=== PATIENT | female | born 1990 ===

== ENCOUNTER → 2021-05-11 12:03 | Outpatient (CLI) | payer OTHER, SELFPAY ==
--- NOTE | 2021-05-11 12:07 | DI.US.S_ITS ---
PROCEDURE: US OB <= 14 WEEKS FETUS INDICATIONS: VIABILITY AND DATES OUTSIDE/PRIOR DATING DATA: Last menstrual period (LMP): 02/27/2021 LMP-based estimated date of delivery (GISEL): 12/04/2021. First dating scan (date and location): 05/11/2021. Estimated date of delivery (GISEL) from first dating scan: 11/29/2021. TECHNIQUE: Real-time scanning was performed of the fetus and maternal pelvic organs, with image documentation. Endovaginal scanning was also performed to better visualize the fetus and maternal ovaries. COMPARISON: None. FINDINGS: Embryo: Single intrauterine gestation is seen with fetus and yolk sac seen. [place]-rump length measures 4.3 cm. Estimated gestational age is 11 weeks, 1 day. Heart rate: 160 beats per minute. Small perigestational hemorrhage measures 2.9 x 0.9 x 1.3 cm in size is seen. Maternal organs: Ovaries are visualized and are within normal limits. Possible small corpus luteum in left ovary is noted. IMPRESSION: 1. Single live intrauterine gestation with fetus and yolk sac seen. heart rate is 160 beats per minute. Estimated gestational age is 11 weeks, 1 day. 2. Small perigestational hemorrhage as above. 3. Possible small corpus luteum in left ovary. We strive to produce accurate, complete, and clear reports of imaging services. To assist us in improving patient care, this report was composed using standard report templates and voice recognition software. Therefore, it may contain abnormal punctuation, insertions and/or omissions. Occasional wrong-word or sound-alike substitutions may occur. Though we review the report and make efforts to correct it, we do recommend that the report be read carefully in proper context to recognize any text inaccuracies. Dictated by: Junior Ritter M.D. on 05/11/2021 at 14:33 Approved by: Junior Ritter M.D. on 05/11/2021 at 14:49
== END ==
PROVIDERS: Referring Provider Family Medicine; Visit Provider Family Medicine
DX: Z36.87 Encounter for antenatal screening for uncertain dates (principal); Z3A.11 11 weeks gestation of pregnancy
CPT/HCPCS: 76801; 76817

== ENCOUNTER → 2021-07-26 10:48 | Outpatient (CLI) | payer OTHER, SELFPAY ==
--- NOTE | 2021-07-26 10:49 | DI.US.S_ITS ---
PROCEDURE: US OB >= 14 WEEKS FETUS INDICATIONS: anatomy screening OUTSIDE/PRIOR DATING DATA: Last menstrual period (LMP): 02/27/2021. LMP-based estimated date of delivery (GISEL): 12/04/2021. First dating scan (date and location): 05/11/2021. Estimated date of delivery (GISEL) from first dating scan: 11/29/2021. The 1st ultrasound dating was used in the following exam. TECHNIQUE: Real-time scanning was performed of the fetus, with image documentation and biometric measurements. COMPARISON: [facility], , OB <= 14 WEEKS FETUS, 05/11/2021, 12:22. FINDINGS: General: A single living intrauterine gestation is present. Presentation: Breech. Placenta: Placental position is anterior , without previa. Amniotic fluid index: 14.2 cm, normal range is 5-24 cm. Single deepest vertical pocket is 3.9 cm. heart rate: 144 beats per minute. Maternal cervical canal: 4.6 cm long. Normal lower limit is 2.5 cm. biometrics: Biparietal diameter: 22 weeks 1 day Head circumference: 21 weeks 5 days Abdominal circumference: 22 weeks 1 day Femur length: 23 weeks 0 day Clinically estimated gestational age: 22 weeks 0 day Composite gestational age from present scan: 22 weeks 2 days Estimated weight and percentile: 504 g; 67%. Anatomic survey: Neuro: Ventricles are non-dilated at less than 10 mm. Cisterna magna is normal at 3-11 mm. Cerebellum is normal in size and morphology. Nuchal skin fold: Normal at less than 6 mm between 14-21 weeks gestational age. Face: Nose and lips, facial profile are normal. Spine: No evidence for spina bifida. Heart: 4-chambered heart is present, with normal ventricular outflow tracts. Diaphragm: Diaphragm is intact. Stomach: Left-sided stomach is present. Kidneys: No hydronephrosis. Normal is less than 5 mm in 2nd trimester, less than 7 mm in 3rd trimester. Cord: 3-vessel cord. The placental cord insertion is not well seen. Bladder: Normal in size. Extremities: All 4 extremities identified. IMPRESSION: 1. A single living intrauterine gestation with appropriate interval growth. 2. Placental cord insertion is not well seen. Otherwise normal anatomic survey. We strive to produce accurate, complete, and clear reports of imaging services. To assist us in improving patient care, this report was composed using standard report templates and voice recognition software. Therefore, it may contain abnormal punctuation, insertions and/or omissions. Occasional wrong-word or sound-alike substitutions may occur. Though we review the report and make efforts to correct it, we do recommend that the report be read carefully in proper context to recognize any text inaccuracies. Dictated by: Emani Mcnulty M.D. on 07/26/2021 at 14:02 Approved by: Emani Mcnulty M.D. on 07/26/2021 at 14:21
== END ==
PROVIDERS: Referring Provider Family Medicine; Visit Provider Family Medicine
DX: Z34.92 Encounter for supervision of normal pregnancy, unspecified, second trimester (principal); Z3A.22 22 weeks gestation of pregnancy
CPT/HCPCS: 76811

== ENCOUNTER → 2021-09-23 10:32 | Outpatient (CLI) | payer OTHER, SELFPAY ==
[2021-09-23 12:08] LABS: Add Manual Diff / Slide Review NO; Basophils Absolute Auto 0 /uL (0-100); Basophils Percent Auto 0.3 % (0-2); Eosinophils Absolute Auto 100 /uL (0-450); Eosinophils Percent Auto 1.2 % (2-4); Hematocrit 35.5 % (36-46); Hemoglobin 12.1 g/dL (12.0-16.0); Lymphocytes Absolute Auto 2200 /uL (1100-4500); Mean Corpuscular Hemoglobin 29.5 PG (26-34); Mean Corpuscular Volume 86.7 fL (80-100); Monocytes Absolute Auto 800 /uL (0-900); Monocytes Percent Auto 8.1 % (3-14); Neutrophils Absolute Auto 7000 /uL (1500-7000); Neutrophils Percent Auto 68.4 % (50-75); Platelet Count 293 X10^3/uL (150-400); Red Blood Cell Count 4.09 X10^6/uL (4.0-5.2); White Blood Cell Count 10.2 X10^3/uL (4.5-11.0)
[2021-09-23 13:32] LABS: GTT (PREG) 1 Hour PP 50gm Dose 159 mg/dL (76-139)
[2021-09-24 08:04] LABS: RPR Screen Non Reactive (Non Reactive)
[2021-09-26 16:33] LABS: Hepatitis B Surface Antigen NEGATIVE s/c (NEGATIVE); Rubella Antibody IgG 30.8 IU/mL (>15)
[2021-09-26 16:51] LABS: HIV 1 & 2 Ab/Ag 4th Gen Combo NEGATIVE (NEGATIVE); Hep C Virus Ab w/Reflex Quant NEGATIVE s/c (NEGATIVE)
== END ==
PROVIDERS: PCP Family Medicine; Referring Provider Family Medicine; Visit Provider Family Medicine
DX: Z34.00 Encounter for supervision of normal first pregnancy, unspecified trimester (principal); Z3A.30 30 weeks gestation of pregnancy
CPT/HCPCS: 36415; 80055; 82950; 86803; 87086; 87389

== ENCOUNTER → 2021-11-08 11:34 | Outpatient (CLI) | payer OTHER, SELFPAY ==
[2021-11-09 20:48] LABS: Strep Grp B PCR NEG for Grp B Strep
== END ==
PROVIDERS: PCP Family Medicine; Visit Provider Family Medicine
DX: Z34.93 Encounter for supervision of normal pregnancy, unspecified, third trimester (principal); Z3A.36 36 weeks gestation of pregnancy
CPT/HCPCS: 87653

== ENCOUNTER 2021-11-21 10:44 | Outpatient (CLI) | payer OTHER, SELFPAY ==
--- NOTE | 2021-11-21 11:15 | P.TNLD_ITS ---
Visit Information Visit Information Date of evaluation: 11/21/21 Primary OB Provider: Anne-Marie Gorman Reason for Evaluation: Yes non-stress test non-stress test reason: decreased movement Vital Signs Vital Signs: Temperature 36.3? 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: No seatbelt use: always water heater temp set < 120 deg: Yes (will check) working smoke detector in home: Yes fire extinguisher in home: Yes carbon monox detector in home: Yes firearms in home: No do you feel safe at home: Yes Smoking Status: Never smoker second hand exposure: No alcohol intake: former substance use type: former substance user and marijuana during the past year weight has: remained stable well-balanced diet: daily or most days daily servings fruits/ve-4 caffeine: No (200mg per day) Type(s) of exercise: regular exercise Evaluation Evaluation Baseline heart rate: 130 Variability: Moderate (11-25) monitor accelerations: Present Monitor Decelerations: Absent Category of Tracing: Reactive Diagnosis, Plan/Disposition Final Diagnosis (1) Decreased movement: Status: Acute (2) 38 weeks gestation of : Status: Acute Plan/Disposition Plan: 30-year-old at 38 weeks gestation who presented to her routine OB visit with reports of a change in movement the last few days. NST reactive and patient is feeling her baby move today. Follow-up in 1 week or sooner if needed. OB Disposition: home
== END 2021-11-21 11:20 | disposition home or self-care (01) ==
LOC: OB 11-24 11:25
PROVIDERS: PCP Family Medicine; Referring Provider Family Medicine; Visit Provider Family Medicine
DX: O36.8130 Decreased fetal movements, third trimester, not applicable or unspecified (principal); Z3A.38 38 weeks gestation of pregnancy
CPT/HCPCS: 59025; G0378; G0379

== ENCOUNTER 2021-11-24 08:20 | Inpatient (IN) | payer OTHER, SELFPAY ==
--- NOTE | 2021-11-24 08:40 | PM.OBHP.IH.1 ---
OB HPI Date/Time Date of admission: 11/24/21 Date Patient Seen: 11/24/21 Time Patient Seen: 08:15 History of Present Condition Chief complaint: Water broke GISEL Calculator Estimated Delivery Date Method Current WG Current Estimate 12/02/21 LMP (Certain) 38w 6d Other Estimates 11/29/21 Ultrasound #1 39w 2d Estimated Gestational Age (weeks): 38w6d : 1 Para: 0 Narrative: 31-year-old at 38 weeks and 6 days gestation who presents after rupture of membranes. She rolled over in bed at approximately 11:30 a.m. last night and felt a gush of fluid. She got up and went to the bathroom needing to change her underwear because it was wet. She called the on-call doctor and was advised to go to the ER in Sunday to be checked. In the ER she was found to be nitrazine positive confirming rupture of membranes. She came over on the first very this morning. She has not been feeling contractions. Baby has been active. She did have some mucousy discharge during the night but no bleeding. Starla has been uncomplicated. She lives on [facility]. care: good care, initiated at week # (13), number of visits (10) and pounds weight gain (43) Dating criteria OB: LMP confirmed by 1st trimester US Ultrasounds: normal 1st trimester US and normal mid trimester US Obstetrical complications: none Medical complications OB: none Preadmission Labs Last OB Lab Results: Hematocrit 35.5 % (36-46) L 09/23/21 10:48 Hemoglobin 12.1 g/dL (12.0-16.0) 09/23/21 10:48 Hepatitis B Surface Antigen Negative s/c (NEGATIVE) 09/23/21 10:48 Hepatitis C Antibody Negative s/c (NEGATIVE) 09/23/21 10:48 Rubella Antibody 30.8 IU/mL (>15) 09/23/21 10:48 Glucose 1 Hour 159 mg/dL (76-139) H 09/23/21 12:02 Group B Streptococcus (PCR) Neg for grp b strep 11/08/21 11:34 Glucose Tolerance Testing: Fasting (82), 1 hr (110), 2 hr (111) and 3 hr (125) -: Chlamydia screen: negative, Gonorrhea screen: negative and Urine: negative -: PAP smear: Abnormal (ASCUS, HPV+) Genetic Screens: Quad screen: Normal External Labs -: Urine: negative Evaluation Evaluation Baseline heart rate: 135 Variability: Moderate (11-25) monitor accelerations: Present Monitor Decelerations: Absent Category of Tracing: Reactive Status: Category l Dilation (cm): 1.5 Effacement (%): 75 station: -3 Non-invasive Membranes Rupture Test: positive (Positive nitrazine at outside hospital) PFSH Medical History Anxiety Surgical History H/O wisdom tooth extraction Social History marital status: unmarried,living together number of children: 1 household members: significant other lives independently: Yes housing: house pets and animals: No education level: high school occupational status: employed 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 seatbelt use: always water heater temp set < 120 deg: Yes (will check) working smoke detector in home: Yes fire extinguisher in home: Yes carbon monox detector in home: Yes firearms in home: No do you feel safe at home: Yes Smoking Status: Never smoker second hand exposure: No alcohol intake: former substance use type: former substance user and marijuana during the past year weight has: remained stable well-balanced diet: daily or most days daily servings fruits/ve-4 caffeine: No (200mg per day) Type(s) of exercise: regular exercise Meds Home Medications and Allergies Home Medications Medication Instructions Recorded Confirmed Type doxylamine succinate 25 mg tablet 25 mg PO BEDTIME PRN 04/11/21 11/14/21 History (Unisom (doxylamine)) prenat.vits,beck,gmc-[id number] 1 tab PO DAILY 04/11/21 11/14/21 History Allergies Allergy/AdvReac Type Severity Reaction Status Date / Time Sulfa (Sulfonamide Allergy Mild Rash Verified 11/14/21 09:57 Antibiotics) Review of Systems Review of Systems ROS: Yes All systems reviewed with the patient and are negative except as otherwise documented OB Exam Narrative Exam Narrative: T 98.0? blood pressure 113/57 rate 93 HENMT Head: normal to inspection Resp Effort & Inspection: normal respiratory effort Auscultation: clear to auscultation bilaterally Cardio Rate: regular rate Rhythm: regular rhythm Extremities Lower extremity: Yes normal to inspection; No edema Presentation: vertex Estimated Weight (lbs): 8 Amniotic Fluid: Nitrazine positive Assessment and Plan Assessment and Plan Assessment and Plan narrative: 31-year-old at 38 weeks and 6 days gestation spontaneous rupture membranes without active labor. Rupture of membranes at approximately 11:30 p.m. last night with clear fluid. She has not had ongoing leaking since the middle of the night though was nitrazine positive confirming rupture membranes. Given lack of spontaneous labor in the last 9 hours, recommended admission and Pitocin augmentation due to rupture of membranes. She is GBS negative. On exam this morning there was concern for a palpable mass in front of the head, unsure whether a finger or cord. Dr. Cobian kindly evaluated the patient with bedside ultrasound as well as digital exam and ruled out concern for umbilical cord. The hand may have been down in front of the head but was not present on Dr. Cobian's exam. Plan Admit labs, COVID swab Begin Pitocin per protocol Epidural upon request Anticipate
[2021-11-24 09:30] VITALS: BP 113/57
[2021-11-24 09:39] LABS: Add Manual Diff / Slide Review NO; Basophils Absolute Auto 100 /uL (0-100); Basophils Percent Auto 0.5 % (0-2); Eosinophils Absolute Auto 0 /uL (0-450); Eosinophils Percent Auto 0.5 % (2-4); Hematocrit 32.8 % (36-46); Hemoglobin 10.9 g/dL (12.0-16.0); Lymphocytes Absolute Auto 2100 /uL (1100-4500); Lymphocytes Percent Auto 20.6 % (25-40); Mean Corpuscular HGB Conc 33.1 % (30-36); Mean Corpuscular Hemoglobin 26.2 PG (26-34); Mean Corpuscular Volume 79.2 fL (80-100); Monocytes Absolute Auto 500 /uL (0-900); Monocytes Percent Auto 5.1 % (3-14); Neutrophils Absolute Auto 7500 /uL (1500-7000); Neutrophils Percent Auto 73.3 % (50-75); Platelet Count 277 X10^3/uL (150-400); Red Blood Cell Count 4.14 X10^6/uL (4.0-5.2); Red Cell Distribution Width 15.5 % (11.6-14.8); White Blood Cell Count 10.2 X10^3/uL (4.5-11.0)
[2021-11-24 09:55] LABS: COVID19 -Nasal RAPID Negative (Negative)
[2021-11-24] MEDS: OXYTOCIN PREMIX 30 UNIT/500 ML PLAST..BAG IV (10:10)
[2021-11-24] MEDS: LACTATED RINGERS 1,000 ML 100 ML IV ×3 (10:10→19:26)
[2021-11-24] MEDS: CALCIUM CARBONATE 500 MG TAB 1000 MG PO (15:22)
[2021-11-24] MEDS: FENT 2MCG/ML BUPIV 0.125% EPI 200 MCG/100 ML PLAST..BAG 8 MCG EPIDURAL (17:04)
--- NOTE | 2021-11-24 17:12 | PM.OBPNLAB ---
Date/Time Date Patient Seen: 11/24/21 Time Patient Seen: 16:50 Pain Control Comments: Desires epidural, contractions are much more painful. Denies leaking. Pelvic Exam Dilation (cm): 1.5 Effacement (%): 85 station: -3 Contractions Monitor mode: External Pitocin rate (mU/min): 4 Contraction frequency (min): 2 Contraction pattern: Regular Status status: Category l Heart Rate Baseline: 140 Monitor Accelerations: Present Monitor Decelerations: Absent Monitor Variability: Moderate Assessment and Plan Comments: 31-year-old at 38 weeks and 6 days with probable high membrane rupture last night at 11:30 p.m. here for labor augmentation given rupture membranes. She has not had ongoing leaking today. She has been on minimal Pitocin with regular contractions and is now requesting an epidural. Cervical exam modestly changed from this morning however there is no longer anything palpable in front of the head. Head remains high in the pelvis. Anesthesia is here to provide an epidural. When she is comfortable, will continue Pitocin and utilize the peanut ball. There is a forebag in front of the head. Will wait for spontaneous rupture membranes or consider rupture of membranes once the head is better applied to the cervix and lower in the pelvis.
--- NOTE | 2021-11-24 20:44 | PM.OBPNLAB ---
Date/Time Date Patient Seen: 11/24/21 Time Patient Seen: 20:30 Pain Control Pain control: epidural Comments: Comfortable with epidural, no complaints. Pelvic Exam Dilation (cm): 3 Effacement (%): 90 station: -3 Amniotic membrane status: Ruptured Contractions Monitor mode: External Pitocin rate (mU/min): 4 Contraction frequency (min): 4 Contraction pattern: Regular Status status: Category l Heart Rate Baseline: 140 Monitor Accelerations: Present Monitor Decelerations: Absent Monitor Variability: Moderate Assessment and Plan Plan: continuous present management Comments: 31-year-old at 38 weeks and 6 days with probable high membrane rupture last night at 11:30 p.m., now comfortable with an epidural. Progress has been slow on pitocin though pitocin was turned off after a prolonged deceleration associated with tachysystole just after before 1800 then slowly restarted. SVE now 3/90/-3. Suspect OP given high station behind pubic bone. Will continue to titrate pitocin as tolerated, peanut ball and frequent position change to help with descent.
[2021-11-25] MEDS: FENT 2MCG/ML BUPIV 0.125% EPI 200 MCG/100 ML PLAST..BAG 8 MCG EPIDURAL ×2 (01:18→09:56)
[2021-11-25] MEDS: CALCIUM CARBONATE 500 MG TAB 1000 MG PO (03:58)
--- NOTE | 2021-11-25 06:10 | PM.OBPNLAB ---
Date/Time Date Patient Seen: 11/25/21 Time Patient Seen: 06:05 Pain Control Pain control: epidural Comments: Intermittently nauseated, one emesis which was brownish, worried about blood though had had an orange popsicle. She had some leaking with the last cervical exam at 3 AM but no ongoing leaking. Pelvic Exam Dilation (cm): 6 Effacement (%): 100 station: -2 Amniotic membrane status: Ruptured (Rupture of membranes during cervical exam of a copious amount of clear fluid) Contractions Monitor mode: External Pitocin rate (mU/min): 10 Contraction frequency (min): 2 Contraction pattern: Regular Status status: Category l Heart Rate Baseline: 150 Monitor Accelerations: Present Monitor Decelerations: Absent Monitor Variability: Moderate Assessment and Plan Assessment: active labor Comments: 31-year-old at 39 weeks gestation admitted yesterday for rupture of membranes without active labor. She has been on Pitocin and made slow progress overnight. On last exam there was a bag of water which ruptured during the exam with a copious amount of clear fluid. She is comfortable with the epidural. Continue Pitocin and expectant management.
--- NOTE | 2021-11-25 13:23 | P.PNOB_ITS ---
Date/Time Date Patient Seen: 11/25/21 Pain Control Pain control: epidural Pelvic Exam Dilation (cm): 8 Effacement (%): 100 station: -2 Amniotic membrane status: Ruptured (Rupture of membranes during cervical exam of a copious amount of clear fluid) Contractions Monitor mode: External Pitocin rate (mU/min): 7 Contraction frequency (min): 3 Contraction pattern: Regular Status status: Category l Heart Rate Baseline: 140 Monitor Accelerations: Present Monitor Decelerations: Absent Monitor Variability: Moderate Assessment and Plan Assessment: active labor Comments: 31 year old at 39 weeks gestation. Exam at 9 AM per RN was 8/100/-2. Cervix remains unchanged despite pitocin. IUPC placed to measure adequacy of contractions. Discussed with the patient and her family the possible need for c- section if no cervical change despite adequate contractions over the next 2 hours. Last temperature was 99.8. Amniotic fluid continues to be clear without odor. No tachycardia to suggest chorioamnionititis. Will continue to monitor closely and titrate pitocin.
--- NOTE | 2021-11-25 15:19 | PM.OBPNLAB ---
Date/Time Date Patient Seen: 11/25/21 Time Patient Seen: 15:00 Pain Control Pain control: epidural Comments: She continues to be nauseated with some vomiting though declines Zofran. Pelvic Exam Dilation (cm): 8 Effacement (%): 100 station: -2 Amniotic membrane status: Ruptured (Rupture of membranes during cervical exam of a copious amount of clear fluid) Contractions Monitor mode: Internal Pitocin rate (mU/min): 10 Contraction frequency (min): 3 Contraction pattern: Regular Status status: Category ll Heart Rate Baseline: 150 Monitor Accelerations: Present Monitor Decelerations: Absent Monitor Variability: Minimal Assessment and Plan Plan: Comments: 31 year old at 39 weeks gestation with first stage arrest of labor. Cervix remains unchanged after 6 hours despite pitocin. Her temperature is now rising, as high as 100.7 though now signs of chorioamnionitis (no tachycardia or malodorous amniotic fluid). Discussed primary for arrest of labor with the patient, her partner and her mother. Risks of surgery reviewed including risk of bleeding, infection and injury to surrounding organs. She is accepting of a blood transfusion if indicated. Consent signed. Will give Ancef 2 g prior to surgery.
--- NOTE | 2021-11-25 15:19 | PM.PREOP ---
Pre-operative Note COVID-19 COVID-19 status: Negative Result date/Date tested (Pos, Neg/Pending): 11/24/21 Criteria for continued procedure: Expected advancement of disease process Interval Note History & Physical reviewed/Exam performed by Physician: Yes Changes to H&P: No
--- NOTE | 2021-11-25 16:59 | SUR.OPER ---
Supine on Padded OR bed, head on pillow, safety belt at thigh, arms secured on padded arm boards at <90 degrees abduction. Bump under right buttock. Legs uncrossed with pillow under knees, gel pad to heels, tape over blanket to lower legs.
[2021-11-25] MEDS: CEFAZOLIN 2 GM/100 ML PREMIX 100 ML IV (17:05)
--- NOTE | 2021-11-25 17:30 | SUR.OPER ---
heart tones at 150 prior to incision, viable baby girl born at 1711, placenta delivered at 1715, cord blood and placenta given to OB RN and taken to OB department, 8/9
[2021-11-25] MEDS: ACETAMINOPHEN IV 1,000 MG/100 ML VIAL 400 MG IV (17:47)
[2021-11-25 18:02] VITALS: BP 131/81; PULSE 96; RESP 26; TEMP 37.2; O2SAT 97
[2021-11-25 18:08] VITALS: BP 135/79; PULSE 104; RESP 20; O2SAT 97
[2021-11-25 18:13] VITALS: BP 111/67; PULSE 97; RESP 30; O2SAT 98
[2021-11-25] MEDS: ONDANSETRON 4 MG/2 ML INJ IV (18:16)
[2021-11-25 18:18] VITALS: BP 115/59; PULSE 97; RESP 26; O2SAT 98
--- NOTE | 2021-11-25 18:28 | P.OP_ITS ---
Operative Date/Time/Diagnoses Date of procedure: 11/25/21 Time of procedure: 17:00 Pre-op diagnosis: Arrest of first stage of labor, 39 weeks of Post-op diagnosis: same Procedure & Clinicians Procedure: Primary low transverse section Same procedure as scheduled: Yes Indications: Arrest of first stage of labor Surgeon: Anne-Marie Gorman Transformer Mechanic: Karen Lopez Reason for Transformer Mechanic: Dr. Lopez was essential to the case for retraction, delivery of infant, control of bleeding and suturing. Anesthesia Type: Epidural Operative Notes Findings: Vigorous female infant in the direct OP position, normal uterus, tubes and ovaries Closure Type: primary Specimen(s): cord blood and other (placenta cultures of and maternal sides) Intraoperative meds administered: Acetaminophen, Duramorph and Ketorolac Applied: Catheter Estimated Blood Loss (mL): 300 Procedure in detail: The patient was taken to the operating room where she was transferred to the operating table. She was then placed in the dorsal supine position with a leftward tilt. SCDs applied. She was prepped and draped in the usual sterile fashion. A timeout was performed. After epidural analgesia was found to be adequate, a Pfannenstiel skin incision was made 2 fingerbreadths above the pubic symphysis and carried through to the underlying layer fascia. The fascia was nicked in the midline and the incision extended bilaterally with Gonsalez scissors, Dr. Gorman doing the left side and Dr. Lopez doing the right side. The superior aspect of the fascial incision was grasped with a Geoff clamps, elevated, and the underlying rectus muscles dissected off sharply and bluntly. Attention was then turned to the inferior aspect of this incision which in a similar fashion was grasped with a Geoff clamps, elevated, and the underlying rectus muscles dissected off sharply and bluntly. The rectus muscles were in the midline. The peritoneum was entered and dissected bluntly laterally by Dr. Gorman and Dr. Lopez. After entering the peritoneum there was good visualization of the bladder. The bladder blade was inserted. The vesicouterine peritoneum was identified, grasped with the pickup, and entered sharply with the Metzenbaum scissors. This incision was extended bilaterally, and the bladder flap was created digitally. The bladder blade was reinserted. The lower uterine segment was incised in a transverse fashion with the scalpel. Upon entering the amniotic sac there was a small amount clear amniotic fluid. The 's head was delivered by Dr. Lopez. The remainder of the body delivered without difficulty. The cord was double clamped and cut. The was handed off to waiting RN and RT. The placenta was delivered with gentle traction. The uterus was cleared of all clots and debris. The uterine incision was repaired with #1 chromic in a running interlocking fashion and a second layer the same suture was used for an imbricating layer. Hemostasis was achieved. The tubes and ovaries were examined and were found to be normal. The gutters were cleared of all clots and debris. The peritoneum was closed using 2-0 Vicryl in a running fashion. The fascia was reapproximated using 0 Vicryl in a running fashion. Subcutaneous layer was copiously irrigated with warm normal saline. 3 simple interrupted sutures of 3-0 Vicryl were placed to reappr oximate the subcutaneous layer. The skin was closed with 4-0 Monocryl in a subcuticular fashion. Steri-Strips were placed. An Aquacel dressing was placed. The uterus was expressed of a small amount of old blood. Sponge, lap, and instrument counts were correct. The patient tolerated the procedure well, and was taken to PACU in stable condition. [place] Baby 1: Infant Gender: Female Presentation: vertex Position: Occiput Posterior Placental Delivery Description: Spontaneous Cord Vessel Description: 3 Vessels score (1 min): 8 score (5 min): 9 Post-operative Condition: stable Disposition: PACU Aftercare: routine postop
[2021-11-25] MEDS: KETOROLAC 30 MG/ML VIAL IV (23:54)
[2021-11-26] MEDS: KETOROLAC 30 MG/ML VIAL IV (06:28)
[2021-11-26] MEDS: ACETAMINOPHEN 325 MG TABLET 650 MG PO ×3 (09:23→21:06)
[2021-11-26] MEDS: DOCUSATE 100 MG CAPSULE 200 MG PO (09:24)
[2021-11-26] MEDS: FERROUS SULFATE 325 MG TABLET PO (09:24)
[2021-11-26] MEDS: PRENATAL VIT,CALC/IRON/FOLIC 1 TABLET 1 TAB PO (09:24)
--- NOTE | 2021-11-26 10:52 | PM.OBPN.1 ---
Subjective - OB Subjective Patient comments: no complaints, pain well controlled and tolerating diet baby status: doing well and nursing well Narrative: Patient reports that she is doing well this morning. Her catheter was removed and she has voided. No difficulty with ambulation. She is tolerating diet and denies nausea. Vaginal bleeding is as expected. Pain controlled with Toradol and Tylenol only. She is not yet passing flatus. Date Patient Seen: 11/26/21 Time Patient Seen: 09:45 Exam Vital Signs (past 8 hours): Oxygen Delivery Method Room Air Temperature 98.4? blood pressure 111/61 heart rate 72 respirations 16 Narrative Exam Narrative: General: Awake and alert, no acute distress. HEENT: NCAT, EOMI, moist oral mucosa CV: Regular rate and rhythm, no murmurs, rubs or gallops Lungs: CTAB, no wheezes, rales, or rhonchi Abdomen: Aquacel dressing intact without drainage. Soft, nontender; bowel tones active; uterus firm 1 cm below umbilicus Extremities: Warm, trace edema bilaterally, 2+ pedal pulses bilaterally Objective Labs Result Diagrams: 11/24/21 08:40 Assessment & Plan Plan day: 1 plan OB: routine postop care Comments: 31-year-old after primary section for arrest of labor. She is recovering well. is going very well. Encouraged ambulation today. Time Spent With Patient Time: Total time spent is greater than 50% in coordination of care (as documented) at patient's floor/unit and/or counseling patient: Time with patient: 15-24 minutes
[2021-11-26 12:26] LABS: Add Manual Diff / Slide Review NO; Basophils Absolute Auto 0 /uL (0-100); Basophils Percent Auto 0.3 % (0-2); Eosinophils Absolute Auto 0 /uL (0-450); Eosinophils Percent Auto 0.2 % (2-4); Hematocrit 31.7 % (36-46); Hemoglobin 10.2 g/dL (12.0-16.0); Lymphocytes Absolute Auto 1800 /uL (1100-4500); Lymphocytes Percent Auto 11.5 % (25-40); Mean Corpuscular HGB Conc 32.2 % (30-36); Mean Corpuscular Hemoglobin 25.7 PG (26-34); Mean Corpuscular Volume 79.8 fL (80-100); Monocytes Absolute Auto 1100 /uL (0-900); Monocytes Percent Auto 6.9 % (3-14); Neutrophils Absolute Auto 13000 /uL (1500-7000); Neutrophils Percent Auto 81.1 % (50-75); Platelet Count 278 X10^3/uL (150-400); Red Blood Cell Count 3.97 X10^6/uL (4.0-5.2); Red Cell Distribution Width 15.5 % (11.6-14.8); White Blood Cell Count 16.1 X10^3/uL (4.5-11.0)
[2021-11-26] MEDS: IBUPROFEN 600 MG TABLET PO ×2 (13:57→20:25)
[2021-11-27] MEDS: IBUPROFEN 600 MG TABLET PO ×2 (03:00→08:52)
[2021-11-27] MEDS: ACETAMINOPHEN 325 MG TABLET 650 MG PO ×2 (03:00→08:52)
[2021-11-27] MEDS: OXYCODONE IR 5 MG TABLET PO (03:01)
[2021-11-27] MEDS: FERROUS SULFATE 325 MG TABLET PO (08:52)
[2021-11-27] MEDS: PRENATAL VIT,CALC/IRON/FOLIC 1 TABLET 1 TAB PO (08:52)
[2021-11-27] MEDS: DOCUSATE 100 MG CAPSULE 200 MG PO (08:52)
--- NOTE | 2021-11-27 10:12 | P.DS_ITS ---
Discharge Providers Provider Date of admission: 11/24/21 08:20 Discharge Date: 11/27/21 Primary care physician: Anne-Marie Gorman DO Consults: 11/25/21 19:34 Consult to Community Outreach Worker Routine Comment: Discharge provider: Anne-Marie Gorman DO Summary Hospital Course Date Patient Seen: 11/27/21 Time Patient Seen: 09:15 Diagnoses: 39 weeks of Arrest of first stage of labor Primary low transverse section Hospital Course: 31-year-old G1 now P1 after primary section at 39 weeks gestation for arrest of labor. Patient was admitted with rupture of membranes confirmed at an outside hospital however no active labor. She was started on Pitocin and received an epidural. Progress was slow on Pitocin. There was eventual second rupture of membranes with clear fluid. Patient dilated to 8 cm however did not continue to dilate over the following 6 hours. She then went on to develop a fever as high as 100.7 without signs of chorioamnionitis (no malodorous amniotic fluid or tachycardia). She was taken for primary low- transverse section due to arrest of first stage of labor. was uncomplicated and she was delivered of a vigorous female infant with Apgars of 8 and 9. course has been uncomplicated. She is ambulating, voiding and passing flatus. Pain well controlled with ibuprofen, Tylenol and minimal oxycodone. Vaginal bleeding is light to moderate as expected. is going well without concerns in the . Advised patient to call for fevers, severe pain or bleeding through more than a pad an hour. She will follow-up in clinic on 12/01/21 for Aquacel dressing removal. Peripartum Data Infant Delivery Method: Section complications: none 1: Gender: Female Disposition of : home Discharge Diagnosis (1) Arrested active labor, delivered, current hospitalization: Status: Acute (2) 39 weeks gestation of : Status: Acute Status at Discharge Cognitive/behavioral status at discharge: at baseline, oriented Functional status at discharge: independent ambulation Overall status at discharge: patient is progressing back to baseline Time Spent with Patient Time attestation: Total time spent providing and/or coordinating discharge services: Time spent: Less than 30 minutes Objective Labs Result Diagrams: 11/26/21 12:00 Labs: Laboratory Results - last 24 hr 11/26/21 12:00 WBC 16.1 H RBC 3.97 L Hgb 10.2 L Hct 31.7 L MCV 79.8 L MCH 25.7 L MCHC 32.2 RDW 15.5 H Plt Count 278 Neut % (Auto) 81.1 H Lymph % (Auto) 11.5 L [place] % (Auto) 6.9 Eos % (Auto) 0.2 L Baso % (Auto) 0.3 Neut # (Auto) 40453 H Lymph # (Auto) 1800 [place] # (Auto) 1100 H Eos # (Auto) 0 Baso # (Auto) 0 Exam Vital Signs (past 8 hours): Oxygen Delivery Method Room Air Narrative Exam Narrative: 98.0 blood pressure 112/70 heart rate 87 respirations 16 General: Awake and alert, no acute distress. HEENT: NCAT, EOMI, moist oral mucosa CV: Regular rate and rhythm, no murmurs, rubs or gallops Lungs: CTAB, no wheezes, rales, or rhonchi Abdomen: Aquacel dressing intact without drainage. Soft, nontender; bowel tones active; uterus firm 1 cm below umbilicus Extremities: Warm, 1+ edema bilaterally, 2+ pedal pulses bilaterally Discharge Plan Discharge Plan Patient Disposition: Home Discharge orders & Medications Prescriptions: New docusate sodium 100 mg Capsule 200 mg PO DAILY Qty: 30 0RF ibuprofen 600 mg Tablet 600 mg PO Q6H PRN (Reason: Fever/Mild Pain (1-3)) Qty: 30 0RF oxycodone 5 mg Tablet 5 mg PO Q4H PRN (Reason: Pain, Moderate (4-6)) Qty: 20 0RF Continued prenat.vits,beck,[id number] Tablet 1 tab PO DAILY Discontinued Unisom (doxylamine) 25 mg tablet 25 mg PO BEDTIME PRN (Reason: Sleep) Follow up/Referrals: Anne-Marie Gorman DO [Primary Care Provider] - 12/01/21 11:30 am (Aquacel dressing removal) Diet/Activity/Treatments Diet: Diet as Tolerated Skin/Wound/Dressing Care Report to your healthcare provider any signs of infection, such as:: chills, fever, night sweats, increased pain, unusual drainage and unusual redness Visit Report/Discharge Packet Visit Report Forms: Patient Portal/API, Stroke Signs & Symptoms Discharge Data Primary Care Provider: Anne-Marie Gorman Attending Provider: Anne-Marie Gorman Admit Date/Time: 11/24/21 08:20
[2021-11-27 12:04] VITALS: BP 112/65; PULSE 83; RESP 18; TEMP 37.2
== END 2021-11-27 15:40 | disposition home or self-care (01) | DRG 788 ==
PROVIDERS: Obstetrics & Gynecology; Admitting Provider Family Medicine; PCP Family Medicine; Referring Provider Family Medicine; Visit Provider Family Medicine
PROC: (CPT 59514; principal; 2021-11-25 16:30)
DX: O62.1 Secondary uterine inertia (principal); Z3A.39 39 weeks gestation of pregnancy; Z37.0 Single live birth; O42.02 Full-term premature rupture of membranes, onset of labor within 24 hours of rupture; Z20.822 Contact with and (suspected) exposure to COVID-19
CPT/HCPCS: 01967; 01968; 36415; 59050; 59510; 59514; 76815; 85025; 86850; 86900; 86901; 87070; 87075; 87205; 87635; C9803; G0378; G0379; J0131; J0690; J1885; J2274; J2405; J2590